=== PATIENT | male | born 1945 | race Caucasian/White ===

== ENCOUNTER 2018-05-18 17:02 | Emergency (ER) | payer MEDICARE, OTHER, SELFPAY ==
[2018-05-18 17:05] VITALS: BP 152/82; PULSE 61; RESP 16; TEMP 36.7; O2SAT 98
--- NOTE | 2018-05-18 19:32 | ED.ABDPAIN ---
HPI - Abdominal Pain General Chief Complaint: Abdominal Pain Stated Complaint: RLQ ABD PAIN, RT FOOT PAIN Time Seen by Provider: 05/18/18 19:32 Source: patient Mode of arrival: ambulatory Limitations: no limitations History of Present Illness HPI narrative: Patient is a 72-year-old male here for evaluation of right-sided groin pain. He states it has been off and on for the past several days. Does seem to come on more when he is up and active. He states that he rubbed the area and sits down and eventually goes away. No urinary symptoms. No bowel symptoms. Urination or bowel movements do not change his symptoms. No rashes. No testicular pain. Also here for evaluation of a bump on the top of his right foot and pain over this area. No known trauma. Review of Systems Constitutional Denies fatigue and Denies headache(s) ENT Ears, Nose, Mouth, and Throat: Denies vertigo, Denies dizziness and Denies headache(s) Cardiovascular Denies chest pain and Denies dyspnea Respiratory Denies dyspnea Gastrointestinal Gastrointestinal: Reports abdominal pain, Denies melena, Denies change in bowel habits, Denies constipation, Denies nausea and Denies vomiting Genitourinary Denies genital lesions, Denies genital pain, Denies dysuria and Denies urinary incontinence Comments: Right-sided arm pain Musculoskeletal Comments: right foot pain Integumentary/Breasts Denies rash Neurologic Denies vertigo, Denies dizziness and Denies headache(s) Endocrine Denies fatigue Hematologic/Lymphatic Denies easy bleeding and Denies easy bruising Allergic/Immunologic Denies urticaria PFSH Medical History Healthy adult (Acute) Surgical History H/O left inguinal hernia repair (Acute) Social History Smoking Status: Never smoker Social History Smoking Status: Never smoker Exam Initial Vital Signs Initial Vital Signs: Vital Signs Temperature 98.1 F 05/18/18 17:05 Pulse Rate 61 05/18/18 17:05 Respiratory Rate 16 05/18/18 17:05 Blood Pressure 152/82 H 05/18/18 17:05 Pulse Oximetry 98 05/18/18 17:05 Const General: cooperative, healthy appearing, comfortable, well developed, well groomed and No acute distress Orientation: alert, awake and oriented x3 HENMT Head: normal to inspection Resp Effort & Inspection: normal respiratory effort Auscultation: clear to auscultation bilaterally Cardio Rate: regular rate Rhythm: regular rhythm GI Inspection: non-distended Palpation: soft, No firm and No tender External: circumcised, hernia ( right inguinal), no lacerations and no lesions Penis: normal penis Meatus: meatus normal Scrotum: scrotum normal Testes: normal, no testicular swelling and no testicular tenderness Skin Lesions: no lesions Rashes: no rashes Neuro General: alert, awake and oriented x3 Cognition: normal cognition Speech: speech normal Extrem Other: tender to palpation over a bump on the top of his right foot dorsum aspect. No changes skin overlying this area Psych Appearance: grossly normal and well kempt Course Vital Signs - 8 hr 05/18/18 17:05 Temperature 98.1 F Pulse Rate 61 Respiratory Rate 16 Blood Pressure 152/82 H Pulse Oximetry 98 MDM - Abdominal Pain Lab Data Point of care testing: Urine Dip Bedside Urine Glucose Negative Bedside Urine Bilirubin - Negative Bedside Urine Ketone - Negative Urine Specific [place] 1.025 Bedside Urine Occult Blood - Negative Bedside Urine pH 6.0 Bedside Urine Protein - Negative Bedside Urine Urobilinogen - Negative Bedside Urine Nitrite - Negative Bedside Urine Leukocytes - Negative Esterase MDM Narrative Medical decision making narrative: patient with a history and physical exam consistent with a right-sided inguinal hernia. Was easily reducible. This does fit his history. The bump on the top of his right foot appears to be a bone spur. Doubt fracture. Will hold on x-rays for now. Patient was given return precautions. He was given the phone number for the area surgery group to follow up with his possible hernia. Patient expressed understanding and agreement with plan. Discharge Plan Departure Patient Disposition: Home Clinical Impression: Inguinal hernia Qualifiers: Obstruction and gangrene presence: without obstruction or gangrene Laterality: unilateral Recurrence: not specified as recurrent Qualified Code(s): K40.90 - Unilateral inguinal hernia, without obstruction or gangrene, not specified as recurrent Discharge Date/Time: 05/18/18 20:03 Interventions: ED Discharge Assessment Last Done: 05/18/18 20:02 Instructions: Groin Hernia -- Adult Activity Restrictions/Additional Instructions: I recommend you contact the [facility] at [phone] for follow-up. Return to the emergency department for any new or worsening symptoms
[2018-05-18 20:02] VITALS: BP 166/86; PULSE 62; RESP 18; TEMP 36.7; O2SAT 100
== END 2018-05-18 20:03 | disposition home or self-care (01) ==
PROVIDERS: Emergency Provider Emergency Medicine
DX: K40.90 Unilateral inguinal hernia, without obstruction or gangrene, not specified as recurrent (principal)
CPT/HCPCS: 81003; 99282; 99283

== ENCOUNTER → 2018-06-09 16:18 | Outpatient (CLI) | payer MEDICARE, OTHER, SELFPAY ==
[2018-06-09 17:05] LABS: Add Manual Diff / Slide Review NO; Basophils Absolute Auto 100 /uL (0-100); Eosinophils Absolute Auto 200 /uL (0-450); Eosinophils Percent Auto 3.5 % (2-4); Hematocrit 45.2 % (41-53); Hemoglobin 15.3 g/dL (13.5-17.5); Lymphocytes Absolute Auto 2200 /uL (1100-4500); Lymphocytes Percent Auto 35.3 % (25-40); Mean Corpuscular HGB Conc 33.8 % (30-36); Mean Corpuscular Hemoglobin 29.8 PG (26-34); Mean Corpuscular Volume 88.2 fL (80-100); Monocytes Absolute Auto 500 /uL (0-900); Monocytes Percent Auto 8.4 % (3-14); Neutrophils Absolute Auto 3200 /uL (1500-7000); Neutrophils Percent Auto 51.8 % (50-75); Platelet Count 200 X10^3/uL (150-400); Red Blood Cell Count 5.12 X10^6/uL (4.5-5.9); Red Cell Distribution Width 12.9 % (11.6-14.8); White Blood Cell Count 6.1 X10^3/uL (4.5-11.0)
[2018-06-09 17:21] LABS: Alanine Aminotransferase 29 IU/L (21-72); Albumin 4.4 g/dL (3.5-5.0); Albumin Globulin Ratio 1.7 (1.0-2.8); Alkaline Phosphatase 88 U/L (38-126); Aspartate Aminotransferase 26 IU/L (17-59); BUN Creatinine Ratio 31.8 (6-22); Bilirubin Total 0.4 mg/dL (0.2-1.3); Blood Urea Nitrogen 35 mg/dL (9-20); Calcium 9.5 mg/dL (8.4-10.2); Carbon Dioxide 28 mmol/L (22-32); Chloride 100 mmol/L (98-107); Estimated Glomerular Filt Rate > 60.0 mL/min (>60); Globulin 2.6 g/dL (1.7-4.1); Glucose 92 mg/dL (80-110); HEMOLYSIS < 15 (0-50); Potassium 4.5 mmol/L (3.4-5.1); Sodium 137 mmol/L (137-145)
== END ==
PROVIDERS: PCP Nurse Practitioner; Visit Provider Surgery
DX: K44.9 Diaphragmatic hernia without obstruction or gangrene (principal)
CPT/HCPCS: 36415; 80053; 85025

== ENCOUNTER 2018-06-21 10:31 | Day surgery (SDC) | payer MEDICARE, OTHER, SELFPAY ==
[2018-06-14 11:46] VITALS: BMI 23.6
[2018-06-21] VITALS (9 sets, daily range): BP systolic 103–152; BP diastolic 62–89; PULSE 58–69; RESP 11–20; TEMP 36.1–36.5; O2SAT 96–99; BMI 25.7
--- NOTE | 2018-06-21 | PATH_ITS ---
[facility] Accession Number: [id number] . 01 Material submitted: . PART A: body - NERVE PART B: body - HERNIA SAC . 02 Diagnosis: A. Specimen Designated Nerve, Site Not Designated: Segment of peripheral nerve with no significant pathologic change. . B. Hernia Sac, Site Not Designated: Soft tissue consistent with hernia sac, negative for atypia and significant inflammation. MRV/06/23/2018 . 02 Electronically signed: . Arjun Tran MD, Pathologist NPI- [id number] . 01 Gross description: . (A) Received in formalin, labeled nerve, is a yusuf-manriquez rubbery nerve segment (length-5.6 cm, diameter-0.2 cm). The resection margin is inked black. The segment is bisected and entirely submitted in cassettes A1-A2. The segment will be serially sectioned at embedding. (B) Received in formalin, labeled hernia sac, is a piece of manriquez-yusuf fibromembranous tissue (3.8 x 2.1 x 0.6 cm). Manager Recovery serial sections submitted in cassette B1. ([id number]) /MRV . 02 Pathologist provided ICD-10: K40.90 . 02 CPT . 688041, 640704 Performed at: 01 [facility] [address], [place], [place] [id number] MD Gabe Levine MD Phone: [phone] Performed at: 02 [facility] [address] [place], [place] [id number] MD Jael Zaragoza MD Phone: [phone]
[2018-06-21] MEDS: LACTATED RINGERS 1,000 ML 42 ML IV ×2 (11:15→13:15)
--- NOTE | 2018-06-21 11:55 | PM.PREOP ---
Pre-operative Note Interval Note History & Physical reviewed/Exam performed by Physician: Yes Changes to H&P: No
[2018-06-21] MEDS: CEFAZOLIN 2 GM/100 ML FROZ.PIGGY IV (12:25)
--- NOTE | 2018-06-21 12:28 | PM.OP.1 ---
Operative Date/Time/Diagnoses Date of procedure: 06/21/18 Time of procedure: 14:02 Pre-op diagnosis: Right Inguinal Hernia Post-op diagnosis: same Operative Notes Findings: Small indirect hernia containing knuckle of bowel Closure Type: primary Specimen(s): other (1. nerve 2. hernia sac) Estimated Blood Loss (mL): 5 Procedure in detail: Patient was taken to the operating room and placed on the operating table in supine position. The right groin was prepped and draped in the usual sterile fashion and a timeout performed with the team present. The pubic symphysis and anterior superior iliac spine were then marked. Local anesthesia was used to infiltrate the line of planned incision as well as the area of the ilioinguinal nerve. A 10 blade scalpel was used to make an 8 cm long incision along the length of the inguinal ligament. Electrocautery was used to go down to the level of the external oblique. A 15 blade scalpel used to make a small incision in the aponeurosis and then Metzenbaum scissors used to open up the external oblique aponeurosis widely. The ilioinguinal nerve was identified and carefully excised so it was entirely removed from the field. The posterior aspect of the external oblique aponeurosis was cleaned superiorly and inferiorly. The shelving edge of the inguinal ligament was identified. The spermatic cord and its surrounding tissues were identified and encircled with a brittni drain. Attachments to cremaster were muscle were taken down using electrocautery and blunt dissection. An indirect hernia sac was identified. This was dissected away from the spermatic cord contents to the level of the peritoneum. The hernia sac was then opened noting a small knuckle of small bowel as well as an adherent piece of intra-abdominal fat which was released and reduced. Using 2-0 silk suture the hernia sac was ligated in a high fashion. This was then transected and passed off the field. There was weakness in the floor of the inguinal canal, but no significant direct hernia component was identified. Interestingly, a structure that looked like the vas deferens was draped across the floor fat. The true vas was definitely identified in normal anatomic position within the cord. The area was irrigated and dried. Using an Atrium Prolite mesh the floor of the inguinal canal was recreated. The mesh was sewn into place with 0-Ethibond in an interrupted fashion starting at the pubic tubercle. The internal ring was then recreated by sewing the flaps of the keyhole mesh together. A finger was noted to easily pass through the ring along with the spermatic cord contents. The field was irrigated. The mesh was noted to lie without redundancy or tension in satisfactory position.The external oblique aponeurosis was then reapproximated using 3-0 vicryl in a running fashion. This also recreated the external ring. The right scrotum was palpated and the testicle and spermatic cord were pulled back into their usual anatomic position. Charlene's fascia was reapproximated using 2-0 vicryl in a running fashion. The dermis was closed with interrupted 3-0 vicryl. The skin was reapproximated using 4-0 monocryl in a running subcuticular fashion. The remainder of the local anesthesia was used over the incision site and at the level of the ilioinguinal nerve. The area was cleaned and dried. Skin glue was placed over the incision. All counts were correct at the end of the procedure. The patient was awakened and taken to the PACU in stable condition. Complications: none
--- NOTE | 2018-06-21 12:46 | SUR.OPER ---
Supine on padded OR bed, head on pillow, arms secured on padded arm boards at <90 degrees abduction, legs uncrossed, safety belt at thigh, tape over blanket over lower legs.
[2018-06-21] MEDS: BUPIVACAINE 0.25% W/ EPI (PF) 10 ML VIAL 20 ML INJ (12:51)
--- NOTE | 2018-06-21 14:16 | SUR.PHASEI ---
Patient arrived to PACU, VSS on arrival at 1052. Oral airway in place. Respirations regular and unlabored on RA. Verbal report received from Dr. Yun and OR nurse. Oral airway discontinued at 1402.
[2018-06-21] MEDS: OXYCODONE/ACETAMINOPHEN 5/325 TABLET 1 TAB PO (14:35)
--- NOTE | 2018-06-21 14:39 | SUR.PHASEI ---
VSS, Pain level 4/10. Tolerating PO without nausea. Medicated with Oral pain medication prior to transfer to OPD.
== END 2018-06-21 16:00 | disposition home or self-care (01) ==
PROVIDERS: PCP Nurse Practitioner; Visit Provider Surgery
PROC: (CPT 49505; principal; 2018-06-21 11:45)
DX: K40.30 Unilateral inguinal hernia, with obstruction, without gangrene, not specified as recurrent (principal); I10 Essential (primary) hypertension
CPT/HCPCS: 49505; 88302; C1781; J0690; J1100; J1885; J2704

== ENCOUNTER → 2018-07-06 11:06 | Outpatient (CLI) | payer MEDICARE, OTHER, SELFPAY ==
[2018-07-06 12:19] LABS: Cholesterol 183 mg/dL (140-199); HDL Cholesterol 46 mg/dL (40-60); LDL Cholesterol Calculated 96 mg/dL (<100); Triglycerides 207 mg/dL (35-150)
[2018-07-06 12:50] LABS: Prostate Specific Antigen Scrn 5.77 ng/mL (0.1-4.0)
[2018-07-06 13:04] LABS: TSH w/ Reflex to FT4 0.78 uIU/mL (0.47-4.68)
== END ==
PROVIDERS: PCP Nurse Practitioner; Visit Provider Nurse Practitioner
DX: E78.00 Pure hypercholesterolemia, unspecified (principal); I10 Essential (primary) hypertension
CPT/HCPCS: 36415; 80061; 84153; 84443; G0103